=== PATIENT | male | born 1955 | race Caucasian/White ===

== ENCOUNTER → 2016-12-28 | Outpatient (CLI) | payer BC, OTHER | LOC: CT 11:00 | DX: C61 Malignant neoplasm of prostate (principal) | CPT/HCPCS: J7050; Q9965 ==

== ENCOUNTER → 2016-12-30 | Outpatient (CLI) | payer BC, OTHER | LOC: NM 07:34 | DX: C61 Malignant neoplasm of prostate (principal) | CPT/HCPCS: 78306; A9503 ==